=== PATIENT | male | born 1995 | race Caucasian/White ===

== ENCOUNTER 2017-01-19 16:57 | Emergency (ER) | payer OTHER ==
[2017-01-19 17:16] VITALS: BP 154/67
--- NOTE | 2017-01-19 17:44 | UC ---
Skin Complaint HPI - HPI Summary HPI Summary: 21 yo male with painless lump noted on penis new partner about 1 month ago no dysuria - History of Current Complaint Chief Complaint: UCGU Time Seen by Provider: 01/19/17 17:17 Stated Complaint: PERSONAL Hx Obtained From: Patient Onset/Duration: Sudden Onset - just noted today Current Severity: None Pain Intensity: 0 Pain Scale Used: 0-10 Numeric Location: Other - penis Character: Raised Aggravating: Nothing Alleviating: Nothing Associated Signs & Symptoms: Positive: Negative - Allergy/Home Medications Allergies/Adverse Reactions: Allergies Allergy/AdvReac Type Severity Reaction Status Date / Time Penicillins Allergy Unknown Unknown Verified 01/19/17 17:17 Reaction Details Home Medications: Home Medications NK [No Home Medications Reported] 01/19/17 [History Confirmed 01/19/17] Review of Systems Constitutional: Negative Skin: Negative Eyes: Negative ENT: Negative Respiratory: Negative Cardiovascular: Negative Gastrointestinal: Negative Genitourinary: Negative Motor: Negative Neurovascular: Negative Musculoskeletal: Negative Neurological: Negative Psychological: Negative All Other Systems Reviewed And Are Negative: Yes PMH/Surg Hx/FS Hx/Imm Hx Previously Healthy: Yes - Surgical History Surgical History: Yes Surgery Procedure, Year, and Place: R 5th finger fx repair - Family History Known Family History: Positive: Hypertension - Social History Alcohol Use: Weekly Substance Use Type: None Smoking Status (MU): Never Smoked Tobacco Physical Exam Triage Information Reviewed: Yes Appearance: Well-Appearing, No Pain Distress, Well-Nourished Vital Signs: Initial Vital Signs Temp 97.2 F 01/19/17 17:09 Pulse 50 01/19/17 17:09 Resp 14 01/19/17 17:09 BP 154/67 01/19/17 17:09 Pulse Ox 98 01/19/17 17:09 Eyes: Positive: Conjunctiva Clear ENT: Positive: Hearing grossly normal Neck: Positive: Nontender, No Lymphadenopathy Respiratory: Positive: Lungs clear, Normal breath sounds Cardiovascular: Positive: RRR, No Murmur Skin Exam: Other - minute verrucous lesion vental penis Course/Dx - Diagnoses Provider Diagnoses: genital wart Discharge - Discharge Plan Condition: Stable Disposition: HOME Patient Education Materials: Genital Warts (ED) Additional Instructions: you might have a tiny wart I suggest follow up call the following numbers to see if you can be seen for this problem at [address] [place] [address] urology [phone] (Dr. Fraser) 2. Dr. Nunes (dermatology) [phone] 3. [facility] [phone]
== END 2017-01-19 17:45 | disposition home or self-care (01) ==
LOC: UCCORT 16:57
DX: A63.0 Anogenital (venereal) warts (principal); Z88.0 Allergy status to penicillin
CPT/HCPCS: 99211; G0463